=== PATIENT | male | born 1935 | race Caucasian/White ===

== ENCOUNTER 2016-05-17 13:39 | Emergency (ER) | payer OTHER ==
--- NOTE | 2016-05-17 14:42 | EKG Report ---
Test Performed on : 05/17/2016 1:44:35 PM Test Reason : FALL Blood Pressure : / mmHG Vent. Rate : 077 BPM Atrial Rate : 077 BPM P-R Int : 152 ms QRS Dur : 092 ms QT Int : 370 ms P-R-T Axes : 072 055 035 degrees QTc Int : 418 ms Normal sinus rhythm. Nonspecific ST and T wave abnormality Abnormal ECG When compared with ECG of 26-OCT-2015 10:27, No significant change was found Unconfirmed Result
--- NOTE | 2016-05-17 14:50 | PROVIDER DOCUMENTATION ---
HPI-Rash/Wound/ReCheck - General Chief Complaint: Fall Stated Complaint: FALL Time Seen by Provider: 05/17/16 14:45 Allergies/Adverse Reactions: Allergies Allergy/AdvReac Type Severity Reaction Status Date / Time No Known Allergies Allergy Verified 01/26/16 13:25 Home Medications: Buspirone [Buspar] 15 mg PO BID 10/01/13 Carvedilol [Coreg] 6.25 mg PO DAILY 10/01/13 LISINOpril [Prinivil] 10 mg PO DAILY 10/01/13 Venlafaxine [Effexor] 75 mg PO BID 10/01/13 - History of Present Illness-Dermatology Nature of Presenting Problem: pt was sent in by [facility] to tend to the skin tears on his arms and his scalp laceration whcih is currently not bleeding. 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 Location: reports: upper extremity, other (scalp) Context/Associated Symptoms: reports: denies symptoms Identifiable cause?: No Locality of Occurance: Home Similar Symptoms Previously?: Yes Recently seen or treated by another doctor?: No Review of Systems - Adult - REVIEW OF SYSTEMS - ADULT Constitutional: denies: chills, fever Eyes: denies: discharge, blurred vision Ears, Nose, Mouth & Throat: denies: ear pain, nose pain, hoarseness Cardiovascular: denies: chest pain, heart murmur, syncope Respiratory: denies: chronic cough, hemoptysis, shortness of breath Gastrointestinal: denies: abdominal pain, difficulty swallowing, nausea, rectal bleeding, vomiting Genitourinary: denies: discharge, frequent UTI's, urinary retention Musculoskeletal: denies: bone pain, frequent leg cramps, neck pain Integumentary: reports: skin sores/ulcer, other (2 cm right scalp laceration and both elbows have superficial skin tears) Neurological: denies: dizziness/vertigo, loss of balance, syncope Psychiatric: denies: no symptoms reported Endocrine: denies: goiter, cold intolerance, heat intolerance Hematologic/Lymphatic: denies: low blood count, lymphedema Allergic/Immunologic: denies: eczema, frequent infections, hives Past History - Adult - PAST MEDICAL HISTORY-ADULT Major Childhood Illnesses: reports: denies history Cardiovascular: reports: HTN Genitourinary: reports: prostate cancer, other (penile implant) Other Conditions: reports: denies history - PRIOR SURGERIES/PROCEDURES Surgical/Procedure History: reports: cardiac stent - IMMUNIZATION STATUS Childhood Immunizations: See Nurse Assessment Flu Vaccine: See Nurse Assessment - FAMILY HISTORY Family History: reviewed, not pertinent Physical Exam-General - PHYSICAL EXAM-ADULT Initial Vital Signs Reviewed: Yes - CONSTITUTIONAL General Appearance: appears well, alert, no apparent distress - EYES Eyes: PERRL/EOMI, pink conjunctivae - HEAD, EARS, NOSE, MOUTH & THROAT HENMT: normocephalic/atraumatic, moist mucous membranes, normal ENT inspection - NECK Neck: non-tender, full range of motion, supple - RESPIRATORY Respiratory: chest non-tender, lungs clear, normal breath sounds, no pleuratic chest pain, no respiratory distress, no accessory muscle use - CARDIOVASCULAR Cardiovascular: normal peripheral pulses, regular rate, rhythm, no edema, no gallop, no JVD, no murmur - GASTROINTESTINAL (ABDOMEN) Abdominal Exam: normal bowel sounds, non tender, soft, no organomegaly, no pulsatile mass - MUSCULOSKELETAL Back Exam: normal inspection, no CVA tenderness, no vertebral tenderness Extremity: normal range of motion, non-tender, normal inspection, no pedal edema - SKIN Integumentary: normal color, normal turgor, warm/dry, laceration(s), other ( bilateral elbow skin tears) - NEUROLOGIC Neurologic: oracle erp developer II-XII nml as tested, grossly normal, no motor/sensory deficits - PSYCHIATRIC Psych/Mental Status: normal mood/affect, normal thought content, normal thought process, oriented x 3 Progress - PLAN OF CARE/RESULTS Progress/Plan/Lab Results: Orders Category Date Time Status EKG [EKG] Stat Ther 05/17/16 13:42 Draft Vital Signs Temp Pulse Resp BP Pulse Ox 05/17/16 13:41 98.5 F 75 18 166/65 99 No Known Allergies Allergy (Verified 01/26/16 13:25) Buspirone [Buspar] 15 mg PO BID 10/01/13 Carvedilol [Coreg] 6.25 mg PO DAILY 10/01/13 LISINOpril [Prinivil] 10 mg PO DAILY 10/01/13 Venlafaxine [Effexor] 75 mg PO BID 10/01/13 Trazodone [Desyrel] 100 mg PO DAILY #0 tablet 10/28/15 Procedures - LACERATION/WOUND REPAIR/FB Right Head Wound's Depth, Shape: superficial Wound Explored/Foreign Body: clean Irrigated with Saline?: Yes Prepped with: Gianicleleslie Wound Repaired with: Layton-Small Number of Sutures: 2 Sterile Dressing Applied?: No Splint Applied?: No Sling Applied?: No Departure - Departure Time of Disposition Order: 15:06 DIAGNOSIS: Laceration, Abrasion Abrasion forearm Qualifiers: Encounter type: initial encounter Laterality: right Qualified Code(s): S50.811A - Abrasion of right forearm, initial encounter Disposition: HOME 01 Certified Medical Emergency: Emergent Condition: Good Additional Instructions: remove layton in 2 weeks ED Follow Up Instructions: You have been treated by a care provider in the Emergency Department. These instructions are being provided to you so you can have an understanding of how to care for yourself upon discharge. Upon discharge from the Emergency Department, you are responsible for making arrangements for follow-up care by a physician of your choice. Take all prescribed medications as directed. Return to the Emergency Department immediately for any new or worsening symptoms. You may call the Physician Referral phone number at [phone] to obtain a list of Physicians who are taking new patients. Prescriptions: Cephalexin [Keflex] 500 mg PO 4XDAY #40 capsule Referrals: Tobi Stewart MD [Primary Care Provider] -
[2016-05-17 15:44] VITALS: BP 179/70
== END 2016-05-17 15:48 | disposition home or self-care (01) ==
LOC: EDBD → ED 13:39
DX: S01.01XA Laceration without foreign body of scalp, initial encounter (principal); S50.811A Abrasion of right forearm, initial encounter; S51.012A Laceration without foreign body of left elbow, initial encounter; S51.011A Laceration without foreign body of right elbow, initial encounter; I10 Essential (primary) hypertension; Z79.899 Other long term (current) drug therapy; Z85.46 Personal history of malignant neoplasm of prostate; W19.XXXA Unspecified fall, initial encounter
CPT/HCPCS: 93005; 99282

== ENCOUNTER 2016-09-26 22:30 | Inpatient (IN) ==
[2016-09-26] MEDS ORDERED: XYLOCAINE 1%/EPI 1:100,000 INJ ONE (23:08)
[2016-09-26 23:51] LABS: ALBUMIN 3.3 g/dL (3.5-5.0); CALCIUM 8.5 mg/dL (8.8-10.2); MAGNESIUM 2.2 mg/dL (1.5-2.7); POTASSIUM 4.8 mmol/L (3.5-5.1); TOTAL BILIRUBIN 0.28 mg/dL (0.20-1.00); TOTAL PROTEIN 6.4 g/dL (6.3-8.3)
[2016-09-26 23:56] LABS: BASO% 0.3 % (0.0-0.8); EOS# 0.07 X1000 (0.0-0.7); EOS% 0.3 % (0.0-10.0); HEMATOCRIT 38.5 % (42.0-52.0); HEMOGLOBIN 13.1 g/dL (14.0-18.0); IMM GRAN# 0.22 X1000 (0.0-0.04); LYMPH# 1.56 X1000 (1.2-3.4); MANUAL DIFF NEEDED? NO; MCH 36.2 PG (27-31); MCV 106.4 FL (81-99); MONO# 0.82 X1000 (0.11-0.59); MONO% 3.7 % (1.7-9.3); MPV 9.9 FL (7.4-10.4); NEUT% 87.7 % (42.2-75.2); PLT 280 X1000 (130-400); RBC 3.62 XMIL (4.7-6.1)
[2016-09-27 00:37] LABS: URINE SOURCE CATH
[2016-09-27 00:53] LABS: BILIRUBIN URINE NEGATIVE (NEGATIVE); BLOOD URINE LARGE (NEGATIVE); COLOR ORANGE; GLUCOSE URINE NEGATIVE (NEGATIVE); LEUKOCYTES URINE LARGE (NEGATIVE); NITRITE URINE NEGATIVE (NEGATIVE); PH URINE 5.5; PROTEIN URINE 200 mg/dL (NEGATIVE); SP GRAVITY URINE 1.016; TURBIDITY URINE TURBID (CLEAR); UR EPITHELIAL CELLS >10 /HPF (<10); URINE BACTERIA 4+ /HPF; URINE MICRO REVIEW NEEDED? YES; URINE RBC TNTC /HPF (<10); URINE WBC TNTC /HPF (<10); UROBILINOGEN URINE NORMAL (NORMAL)
[2016-09-27] MEDS ORDERED: ROCEPHIN 1 GM/NS 1 GM/50 ML IVPB IV ONE (00:54)
[2016-09-27 00:57] LABS: URINE CASTS NONE SEEN; URINE CRYSTALS NONE SEEN; URINE CULTURE NEEDED? YES; URINE SMALL ROUND CELLS NONE SEEN
[2016-09-27] MEDS ORDERED: NS 1,000 ML IV ONE (00:57)
[2016-09-27 01:50] LABS: INR 0.92; PROTIME 9.6 Seconds (9.2-11.7)
[2016-09-27] MEDS ORDERED: THIAMINE IM ONE (02:16)
[2016-09-27] MEDS ORDERED: ROCEPHIN 1 GM/NS 1 GM/50 ML IVPB IV SCH (02:32)
[2016-09-27] MEDS ORDERED: TYLENOL PO PRN (02:32)
[2016-09-27] MEDS ORDERED: ZOFRAN IV PRN (02:32)
[2016-09-27] MEDS ORDERED: NS 1,000 ML IV SCH (02:32)
--- NOTE | 2016-09-27 02:32 | PROVIDER DOCUMENTATION ---
This chart was entered by Alfreda Rodriguez Scribe, acting as scribe for Richie Skinner MD. HPI-Musculoskeletal Pain/Inj - GENERAL Stated Complaint: fall/ head wound/etoh Time Seen by Provider: 09/26/16 22:30 Source: patient - HX OF PRESENT ILLNESS-MUSKULOSKELTAL Nature of Presenting Problem: 81 year old M presents to the ED with a cc of a fall and head injury. PT states that he tripped over his dog. PT has a large laceration to right scalp. PT states that he drank 1/2 of a 1/5 today. PT also has a large skin tear to right forearm. Severity in ED: moderate Onset/Duration: this evening Timing: still present Any recent injury?: Yes Locality of Occurance: Home Similar Symptoms Previously?: Yes - FALL INJURY Location of Pain/Injury: reports: head, upper extremity Reason for Fall: reports: tripped Loss of Consciousness: unsure Injury Associated Symptoms: reports: other (scalp laceration, skin tear) Review of Systems - Adult - REVIEW OF SYSTEMS - ADULT Constitutional: reports: no symptoms reported Eyes: reports: no symptoms reported Ears, Nose, Mouth & Throat: reports: no symptoms reported Cardiovascular: denies: chest pain, palpitations Respiratory: denies: cough, shortness of breath Gastrointestinal: reports: no symptoms reported Genitourinary: reports: no symptoms reported Musculoskeletal: reports: no symptoms reported Integumentary: reports: other (scalp laceration, skin tear). denies: skin sores /ulcer, skin thickening Neurological: reports: no symptoms reported Psychiatric: reports: no symptoms reported Endocrine: reports: no symptoms reported Hematologic/Lymphatic: reports: no symptoms reported Allergic/Immunologic: reports: no symptoms reported All Other Systems: Reviewed and Negative Past History - Adult - PAST MEDICAL HISTORY-ADULT Review of Records: reports: Nursing Assessment Review, Medications Reviewed Major Childhood Illnesses: reports: denies history Cardiovascular: reports: HTN Genitourinary: reports: prostate cancer, other (penile implant) Other Conditions: reports: denies history - PRIOR SURGERIES/PROCEDURES Surgical/Procedure History: reports: cardiac stent - IMMUNIZATION STATUS Childhood Immunizations: See Nurse Assessment Flu Vaccine: See Nurse Assessment - FAMILY HISTORY Family History: reviewed, not pertinent - SOCIAL HISTORY Smoking: cigarettes Provider spent 3-5 mins advising pt. on dangers of tobacco.: Discussed manners to quit use, and f/u contacts for add'l counseling. Alcohol Use Frequency: every day Number of drinks per typical drinking period:: 5-10 drinks Physical Exam-Injury Related - Physical Exam-Injury Related Initial Vital Signs Reviewed: Yes General Appearance: appears well, alert, no apparent distress Head, Ears, Nose, Mouth & Throat: other (4 cm "V" shaped laceration to scalp just right of the midline) Respiratory: no respiratory distress Cardiovascular: regular rate, rhythm Extremity: normal range of motion, normal inspection Integumentary: laceration (4 cm skin tear to right forearm) Progress - PLAN OF CARE/RESULTS Progress/Plan/Lab Results: Vital Signs - 8 hr 09/26/16 23:03 Temperature 97.7 F Pulse Rate 100 H Respiratory Rate 20 Blood Pressure 114/62 O2 Sat by Pulse Oximetry 96 Laboratory Results - last 24 hr 09/26/16 09/26/16 09/26/16 23:20 23:20 23:20 WBC 22.44 H RBC 3.62 L Hgb 13.1 L Hct 38.5 L MCV 106.4 H MCH 36.2 H MCHC 34.0 RDW Std Deviation 13.7 Plt Count 280 MPV 9.9 Immature Gran % (Auto) 1.0 H Neut % (Auto) 87.7 H Lymph % (Auto) 7.0 L Grand % (Auto) 3.7 Eos % (Auto) 0.3 Baso % (Auto) 0.3 Immature Gran # (Auto) 0.22 H Neut # (Auto) 19.70 H Lymph # (Auto) 1.56 Grand # (Auto) 0.82 H Eos # (Auto) 0.07 Baso # (Auto) 0.07 PT INR Sodium 138 Potassium 4.8 Chloride 97 L Carbon Dioxide 22 L Anion Gap 19 BUN 17 Creatinine 1.5 H Estimated GFR/1.73 m2 45 BUN/Creatinine Ratio 11 Glucose 130 H Calculated Osmolality 279 Calcium 8.5 L Magnesium 2.2 Total Bilirubin 0.28 AST 32 ALT 17 Alkaline Phosphatase 111 Total Protein 6.4 Albumin 3.3 L Globulin 3.1 Albumin/Globulin Ratio 1.1 Lipase 25 Urine Source Urine Color Urine Turbidity Urine pH Ur Specific [place] Urine Protein Ur Glucose (Stick) Ur Ketones (Stick) Urine Blood Urine Nitrite Urine Bilirubin Urobilinogen Dipstick Urine Leukocytes Urine WBC (Auto) Urine RBC (Auto) U Epithel Cells (Auto) Urine Bacteria (Auto) Urine Crystals Small Round Cells Urine Casts Urine Yeast-like Cells Plasma/Serum Ethyl Alc 138 H 09/27/16 09/27/16 00:12 01:08 WBC RBC Hgb Hct MCV MCH MCHC RDW Std Deviation Plt Count MPV Immature Gran % (Auto) Neut % (Auto) Lymph % (Auto) Grand % (Auto) Eos % (Auto) Baso % (Auto) Immature Gran # (Auto) Neut # (Auto) Lymph # (Auto) Grand # (Auto) Eos # (Auto) Baso # (Auto) PT 9.6 INR 0.92 Sodium Potassium Chloride Carbon Dioxide Anion Gap BUN Creatinine Estimated GFR/1.73 m2 BUN/Creatinine Ratio Glucose Calculated Osmolality Calcium Magnesium Total Bilirubin AST ALT Alkaline Phosphatase Total Protein Albumin Globulin Albumin/Globulin Ratio Lipase Urine Source CATH Urine Color ORANGE Urine Turbidity TURBID Urine pH 5.5 Ur Specific [place] 1.016 Urine Protein 200 A Ur Glucose (Stick) NEGATIVE Ur Ketones (Stick) NEGATIVE Urine Blood LARGE A Urine Nitrite NEGATIVE Urine Bilirubin NEGATIVE Urobilinogen Dipstick NORMAL Urine Leukocytes LARGE A Urine WBC (Auto) TNTC A Urine RBC (Auto) TNTC A U Epithel Cells (Auto) >10 A Urine Bacteria (Auto) 4+ Urine Crystals NONE SEEN Small Round Cells NONE SEEN Urine Casts NONE SEEN Urine Yeast-like Cells NONE SEEN Plasma/Serum Ethyl Alc Orders Category Date Time Status Bladder Scan and Record Result ORDERED Care 09/27/16 01:41 Active HEAD/C-SPINE W/O CONTRAST [CT] Stat Exams 09/26/16 22:31 Taken ALCOHOL BLOOD Stat Lab 09/26/16 23:20 Completed CBC WITH ELECTRONIC DIFF [HEME] Stat Lab 09/26/16 23:20 Completed CMP [COMPREHENSIVE METABOLIC PANEL] [CHEM] Stat Lab 09/26/16 23:20 Completed LIPASE [CHEM] Stat Lab 09/26/16 23:20 Completed MAGNESIUM [CHEM] Stat Lab 09/26/16 23:20 Completed PHOSPHORUS [CHEM] Stat Lab 09/27/16 01:41 Ordered PROTIME WITH INR [COAG] Stat Lab 09/27/16 01:08 Completed UA NIMS W/REFLEX CULT [URINALYSIS] Stat Lab 09/27/16 00:12 Completed URINE CULTURE [RM] Routine Lab 09/27/16 00:57 Received URINE MANUAL MICROSCOPIC [URINALYSIS] Stat Lab 09/27/16 00:12 Completed 0.9% Sodium Chloride Inj [Ns] 1,000 ml Med 09/27/16 00:57 Discontinued IV 999 mls/hr CefTRIAXONE 1 GM/NS [Rocephin 1 gm/Ns] Med 09/27/16 00:54 Discontinued 1 gm in 50 ml IV NOW Lidocaine 1%/Epi 1:100,000 [Xylocaine 1%/Epi 1:100,000] Med 09/26/16 23:08 Discontinued 20 ml INJ NOW ONE Multivit,Fe,Ca,FA & Min [Thera M Plus] Med 09/27/16 03:00 Active 1 each PO BID Thiamine Med 09/27/16 02:16 Discontinued 100 mg IM NOW ONE EKG [EKG] Stat Ther 09/27/16 01:41 Ordered Transfer/Admit Order [TRANSFER] Routine Transfer 09/27/16 01:44 Ordered Result Diagrams: 09/26/16 23:20 09/26/16 23:20 - EKG 1 Time of EKG reading by physician:: 02:24 EKG Read and Signed by:: Richie Skinner EKG Interpretation (*Must complete 3 of following elements*): Abnormal Rate: 99 Rhythm: NSR ST Wave: non-specific ST changes - CT/MRI 1 CT Study: Cervical Spine, Head Impression: Normal CT Results: scalp laceration, no other injury to head or c-spine:Dr. Fragoso(rad) - CONSULTS/PCP/HOSPITALIST Notification #1 *Consult/PCP/Hospitalist*: Dr. Martinez(hospitalist) Time Discussed: 01:04 Consult Disposition: Admit Procedures - LACERATION/WOUND REPAIR/FB Right Head Wound Location: Other: scalp Wound Length: 4 cm Wound's Depth, Shape: flap Anesthetic: 1%, Lidocaine w/ Epinephrine Volume of Anesthetic (ml's): 5 Wound Repaired with: Rulo-Small Number of Sutures: 10 Layer Closure?: No Splint Applied?: No Sling Applied?: No Departure - Departure Time of Disposition Decision: 00:56 DIAGNOSIS: Scalp laceration, Alcohol abuse, Recurrent falls, UTI (urinary tract infection) Disposition: ADMITTED INPATIENT 09 Certified Medical Emergency: Emergent Condition: Fair Referrals and Follow-Ups: Tobi Stewart MD [Primary Care Provider] - - Critical Care Note This patient required my direct & personal management of CC.: No This chart was documented by the indicated scribe, (Alfreda Rodriguez Scribe) and accurately reflects the services I performed and decisions made by me, Richie Skinner MD, as attested by the provider's signature.
[2016-09-27] MEDS: THERA M PLUS PO SCH ×2 (03:00→20:22)
[2016-09-27] MEDS: PROTONIX IV SCH (03:16)
[2016-09-27] MEDS: LIBRIUM PO SCH ×4 (03:50→20:22)
[2016-09-27 04:05] LABS: HEMOGLOBIN A1C 5.4 % (4.8-6.0)
[2016-09-27 04:07] LABS: UR AMPHETAMINES QUAL NONE DETECTED (NONE DETECT); UR BARBITUATES QUAL NONE DETECTED (NONE DETECT); UR BENZODIAZEPIN QUAL NONE DETECTED (NONE DETECT); UR CANNABINOIDS QUAL NONE DETECTED (NONE DETECT); UR COCAINE QUAL NONE DETECTED (NONE DETECT); UR METHADONE QUAL NONE DETECTED (NONE DETECT); UR OPIATES QUAL NONE DETECTED (NONE DETECT); UR OXYCODONE QUAL NONE DETECTED (NONE DETECT); UR PCP QUAL NONE DETECTED (NONE DETECT)
--- NOTE | 2016-09-27 04:19 | HISTORY AND PHYSICAL ---
PRIMARY CARE PROVIDER: Dr. Stewart. CHIEF COMPLAINT: Fall. HISTORY OF PRESENT ILLNESS: Mr. Morrow is a 81-year-old male with a past medical history of hypertension, COPD, prostate cancer, skin cancer, depression, anxiety , and alcohol abuse. He reports that recently he has had multiple falls. He reports that upon standing that he becomes very shaky and falls sometimes. He states that at this time he is drinking half a fifth of whiskey a day, and has so since 2013. Prior to this , he states that he drank a 6-pack a day for several years. He reports that tonight he tripped over his dog and fell, hitting his head. ER staff reports that his head wound did have a lot of bleeding prior to patient's sweta being placed. He denied any loss of consciousness. He denies any other pain at this time, though does have a large skin tear noted to his right forearm. The patient does report that starting yesterday, he began having dysuria. He also reports that he has had some difficulty urinating. He states he has a hard time initiating urine flow, though once his urine flow has started he denies any further problems with emptying his bladder. He denies any fever, body aches, or chills. He also denies any chest pain, abdominal pain, nausea, vomiting, or diarrhea. He does report that he has some occasional shortness of breath, and states this is not of new onset, and reports that he does have COPD. Upon evaluation in the ER, the patient was found to have a 4 cm V-shaped laceration to his scalp just right of the midline. Dr. Skinner did place approximately 10 sweta. He also has a 4 cm skin tear noted to his right forearm that has been bandaged by the ER staff as well. His last Tdap injection was on 01/26/2016. CT of the head and C-spine showed a scalp laceration, though no other injury of the head or C-spine noted. Also, the patient was noted to have leukocytosis, with a white blood cell count of 22,000 in the ER. Secondary to this, urinalysis was obtained, which does show the patient has a urinary tract infection as well. At this time, we will admit the patient for further treatment and evaluation of his urinary tract infection, alcohol intoxication, and multiple falls. REVIEW OF SYSTEMS: A 12-point review of systems was conducted with the patient. All were negative, except for pertinent positives mentioned in the above HPI. PAST MEDICAL HISTORY: 1. Hypertension. 2. COPD. 3. Prostate cancer. 4. Skin cancer. 5. Depression. 6. Anxiety. 7. Alcohol abuse. PAST SURGICAL HISTORY: 1. Appendectomy. 2. Prostate surgery for prostate cancer. 3. Penile implant surgery. SOCIAL HISTORY: Patient reports that he smokes a half a pack of cigarettes per day, and has so for approximately 40 years. He also is presently drinking a half a fifth of whiskey a day, and has so since 2013. Prior to this, he drank approximately 6 beers a day. He is . His in 2013, and that is when he states he started drinking whiskey. He did report that he does have home health that comes out to his house to see him. FAMILY HISTORY: He states that his mother had a history of congestive heart failure. His dad had a history of kidney disease. He has 1 brother that lives in [place], and is otherwise healthy. ALLERGIES: Patient reports no known allergies. HOME MEDICATIONS: 1. BuSpar 15 mg p.o. b.i.d. 2. Coreg 6.25 mg p.o. q.a.m. 3. Lisinopril 10 mg p.o. q.a.m. 4. Aleve 220 mg p.o. q.8 hours p.r.n. for pain. 5. Trazodone 100 mg p.o. at bedtime. 6. Effexor 75 mg p.o. q.a.m. DIAGNOSTIC DATA AND LABORATORY RESULTS: White blood cell count 22.4, hemoglobin 13.1, hematocrit 38.5, platelet count is 280,000. PT 9.6, INR was 0.92. Sodium 138, potassium 4.8, chloride 97, bicarb 22, BUN 17, creatinine 1.5, with an estimated GFR 45. Glucose is 130, calcium 8.5, magnesium 2.2. Liver function tests within normal limits. The lipase is 25. Serum alcohol was 138. Urinalysis was obtained via cath, was positive for protein and large blood , large leukocytes, too numerous to count white blood cells, greater than 10 epithelial cells, and 4+ bacteria. It was negative for glucose, ketones, or nitrites. CT of the head/ C-Spine showed a scalp laceration, though no other injuries noted. Pending diagnostic studies at this time are a urine culture, phosphorous, and EKG. PHYSICAL EXAMINATION: VITAL SIGNS: Temperature 97.7 degrees, heart rate 100, respirations 20, blood pressure 114/62, oxygen saturation is 96% on room air. GENERAL: Mr. Morrow is a pleasant 81-year-old male, who is resting in the ER stretcher. He is in no acute distress. He was awake, alert, and able to answer all questions appropriately. HEENT: The patient does have an approximately 4 cm V-shaped laceration noted to his scalp, just right of the midline. There are sweta in place at this time. There is no active bleeding noted. Pupils are equal, round, and reactive to light. Subconjunctivae were slightly pale. Oral mucosa is moist. Oropharynx is clear. NECK: Supple. Trachea midline. No carotid bruits noted upon auscultation bilaterally. CARDIOVASCULAR: Patient has normal S1, S2. No murmurs, gallops, or rubs appreciated, with a regular rate and rhythm. PULMONARY: Patient has symmetrical chest expansion bilaterally. Lung sounds are clear to auscultation in bilateral full batista. ABDOMEN: Soft, nontender, nondistended. Bowel sounds are present in all 4 quadrants. EXTREMITIES: No cyanosis, clubbing, or edema noted. Pulse, motor, and sensory were intact in all extremities as well. Pedal pulses were 3+ bilaterally. INTEGUMENTARY: Patient's skin is pink, warm, dry. As previously mentioned, the patient does have a 4 cm skin tear noted to his right forearm. This has been previously bandaged by ER staff. The patient does have some ecchymoses in various stages of healing on bilateral arms. NEUROLOGICAL: Patient is alert, oriented to person, place, time, and situation. Cranial nerves 2- 12 are grossly intact. ASSESSMENT AND PLAN: 1. Urinary tract infection. For this, we have placed the patient on Rocephin 1 g IV q.24 hours. We are awaiting a urine culture. The patient did report that he has had some trouble urinating. After urinating in the ER, we did bladder scan the patient, and was found to have 92 mL of urine still present. We will continue to monitor this closely. 2. Leukocytosis. This is likely secondary to his urinary tract infection. We will continue with treatment as above in #1 and continue to follow. 3. Acute kidney injury. We will continue with gentle fluid resuscitation with normal saline at 100 mL/h. We will avoid nephrotoxic medications. We will renally dose medications as necessary. Continue to monitor closely. 4. Hypertension. Will continue the patient's Coreg, though at this time, given his acute kidney injury, we have held his lisinopril. 5. Alcohol intoxication and abuse. We have placed orders for neurological checks q.2 hours, as well as seizure precautions, aspiration precautions, and fall precautions. We will start the patient on 25 mg of Librium q.6 hours and Ativan 1 mg IV push q.2 hours p.r.n. for alcohol withdrawal. We have ordered a multivitamin daily and thiamine 100mg IM. We will closely monitor his condition and continue to encourage him to quite drinking. 6. Multiple falls. This is likely influenced by the patient's alcohol abuse. At this time, he does live alone. We have placed a Correspondence Specialist consult and a Physical Therapy evaluation. We will continue to follow. 7. Depression. We will continue the patient's Effexor. The patient will be placed on CIC with telemetry. He will have vital signs q.4 hours. He will be on a heart healthy diet. We will do strict intake and output. DVT prophylaxis will be provided with SCDs. GI prophylaxis with Protonix 40 mg IV q.24 hours. Further orders and recommendations pending hospital course, diagnostic studies, and physician evaluation. Dictated by AMINA Thurman for Ramon Martinez MD Seen and examined patient with [employer] cc: MD Tobi Pascual MD MTDD
[2016-09-27] MEDS ORDERED: PNEUMOVAX 23 IM ONE (05:06)
--- NOTE | 2016-09-27 05:09 | EKG Report ---
Test Performed on : 09/27/2016 02:24:27 AM Test Reason : Fall, ETOH Intoxication. Blood Pressure : / mmHG Vent. Rate : 099 BPM Atrial Rate : 099 BPM P-R Int : 138 ms QRS Dur : 080 ms QT Int : 354 ms P-R-T Axes : 078 048 032 degrees QTc Int : 454 ms Normal sinus rhythm. Nonspecific ST abnormality Abnormal ECG When compared with ECG of 17-MAY-2016 13:44, T wave inversion no longer evident in Anterior leads Unconfirmed Result
[2016-09-27] MEDS ORDERED: NORCO-5 PO PRN (07:17)
--- NOTE | 2016-09-27 07:28 | Diag Imaging Result Doc PS360 ---
EXAM: HEAD/C-SPINE W/O CONTRAST HISTORY: head injury/pain TECHNIQUE: CT of the head without contrast; CT of the cervical spine. COMMENT: There is mild generalized cerebral atrophy. There is no evidence of mass effect bleed or abnormal extra-axial fluid collection. There is some mild periventricular white matter lucency particularly near the anterior horn on the right which has not changed since 06/21/2016. Otherwise has been no significant change. CT of the cervical spine: There are degenerative changes in the anterior atlantoaxial joints as well as degenerative disc changes with disc space narrowing and posterior osteophyte formation at C3-4, C4-5, and C5-C6. There is COPD with apical pleural scarring particularly in the right apex. There is no evidence of acute fracture or subluxation. IMPRESSION: No evidence of acute intracranial disease. No evidence of acute bony disease in the cervical spine. Electronically signed by Gutierrez Espinal 09/27/2016 7:26 AM
[2016-09-27] MEDS: COREG PO SCH (08:11)
[2016-09-27] MEDS: EFFEXOR PO SCH (09:41)
[2016-09-27] MEDS: M.V.I.-12 10 ML, FOLIC ACID 1 MG, MAGNESIUM SULFATE 1 GM, THIAMINE 100 MG in NS 1,000 ML IV SCH (09:41)
[2016-09-27] MEDS: DUONEB (A & A) INH SCH ×3 (11:03→19:40)
[2016-09-27] MEDS: ATIVAN IV PRN (23:03)
[2016-09-28] MEDS ORDERED: LIBRIUM PO SCH
[2016-09-28] MEDS: SODIUM CHLORIDE 0.9% INJ SCH (01:36)
[2016-09-28] MEDS: ROCEPHIN 1 GM/NS 1 GM/50 ML IVPB IV SCH (01:36)
[2016-09-28] MEDS: PROTONIX IV SCH (01:48)
[2016-09-28 05:42] LABS: BASO% 0.5 % (0.0-0.8); EOS# 0.21 X1000 (0.0-0.7); EOS% 1.9 % (0.0-10.0); HEMATOCRIT 26.9 % (42.0-52.0); HEMOGLOBIN 9.2 g/dL (14.0-18.0); IMM GRAN# 0.05 X1000 (0.0-0.04); IMM GRAN% 0.5 % (0.0-0.5); LYMPH# 1.97 X1000 (1.2-3.4); LYMPH% 17.9 % (20.5-51.1); MANUAL DIFF NEEDED? NO; MCH 36.8 PG (27-31); MCHC 34.2 g/dL (33-37); MCV 107.6 FL (81-99); MONO# 0.95 X1000 (0.11-0.59); MONO% 8.6 % (1.7-9.3); MPV 10.9 FL (7.4-10.4); NEUT% 70.6 % (42.2-75.2); PLT 208 X1000 (130-400)
[2016-09-28 06:07] LABS: ALBUMIN 2.7 g/dL (3.5-5.0); CALCIUM 7.9 mg/dL (8.8-10.2); POTASSIUM 3.9 mmol/L (3.5-5.1); TOTAL BILIRUBIN 0.34 mg/dL (0.20-1.00); TOTAL PROTEIN 5.4 g/dL (6.3-8.3)
[2016-09-28] MEDS: DUONEB (A & A) INH SCH ×5 (06:47→22:24)
--- NOTE | 2016-09-28 07:13 | PROGRESS NOTE ---
DATE: 09/28/2016 SUBJECTIVE: Mr. Morrow is a 81-year-old, white gentleman, admitted yesterday status post fall. The patient was found to have significant UTI. The patient does have history of alcohol abuse along with his other medical problems. The patient claims he tripped over his dog, hit his head, lacerated wound on the scalp which was stapled. Patient also had a skin tear on his right forearm. No documented history of loss of consciousness. Admission history and physical noted. The patient is complaining of headache. No seizure-type activity. The patient does have cough with scanty sputum production. He denied any nausea or vomiting. No typical chest pain. Does have mild dysuria. No diarrhea, blood or mucus in the stool. The patient is very vague and poor historian. The patient is very noncompliant for treatment. He does have significant history of alcohol abuse. I requested him multiple times about alcohol rehab, offered him help but patient refused. Family was aware. PAST MEDICAL HISTORY: COPD, coronary artery disease, prostate cancer, hyperlipidemia, gastritis. OBJECTIVE: Vital Signs His vital signs noted. Neck: Supple. No JVD. Lungs: Bilateral good air entry present. Few basal crepitations. Heart: S1 and S2 heard. Abdomen: Soft, globular. Bowel sounds present. Patient does have a stitch wound on the scalp, dressed wound on the right forearm. Extremities: No cyanosis, clubbing. No acute DVT. CORRECTIONAL SUPERVISOR: Alert, awake. Able to move all 4 limbs. CONSIDERATION: 1. Urinary tract infection. The patient is on IV Rocephin. 2. Head injury. 3. Chronic obstructive pulmonary disease. 4. Hypertension. 5. Prostate cancer. 6. Gastritis and reflux disease. PLAN: We are going to continue IV antibiotics. Gentle hydration, close observation. Deep venous thrombosis prophylaxis. I did discuss patient's condition, prognosis, risk of DT with his daughter, Gianna, yesterday on the telephone of poor prognosis. They did understand. Will watch patient for sedation. Fall precaution. LAB DATA: Done this morning, hemoglobin 9.2, WBC count 11, hematocrit 26.9, platelet count 208,000. CBC improved. Electrolytes fairly benign. Creatinine 1.3. His hemoglobin A1c was 5.4. Urine culture result is pending. cc: Tobi Stewart MD
[2016-09-28] MEDS: M.V.I.-12 10 ML, FOLIC ACID 1 MG, MAGNESIUM SULFATE 1 GM, THIAMINE 100 MG in NS 1,000 ML IV SCH (09:41)
[2016-09-28] MEDS: LIBRIUM PO SCH ×3 (09:41→21:17)
[2016-09-28] MEDS: COREG PO SCH (09:41)
[2016-09-28] MEDS: THERA M PLUS PO SCH ×2 (09:41→21:17)
[2016-09-28] MEDS: EFFEXOR PO SCH (09:41)
[2016-09-28] MEDS: ATIVAN IV PRN (15:51)
[2016-09-29] MEDS: ROCEPHIN 1 GM/NS 1 GM/50 ML IVPB IV SCH (01:44)
[2016-09-29] MEDS: SODIUM CHLORIDE 0.9% INJ SCH (01:45)
[2016-09-29] MEDS: PROTONIX IV SCH (01:45)
[2016-09-29] MEDS: LIBRIUM PO SCH ×4 (04:09→20:16)
[2016-09-29] MEDS: DUONEB (A & A) INH SCH ×5 (04:20→21:54)
--- NOTE | 2016-09-29 07:59 | PROGRESS NOTE ---
DATE: 09/29/2016 SUBJECTIVELY: Mr. Morrow is feeling better. According to nurses, the patient is tolerating Librium well. He was some tremulous last night. The patient is eating fair. No nausea, vomiting. No hallucination. No typical chest pain or palpitations. No high-grade fever or chills. No tachycardia. Patient admitted with UTI. History of fall, head injury. OBJECTIVE: Vital Signs: Vital signs noted. Neck: Supple. No JVD. Lungs: Bibasilar crepitations. Heart: S1 and S2 heard. Abdomen: Soft, globular. Bowel sounds present. Extremities: No cyanosis, clubbing. No acute DVT. MANUFACTURING ADVISOR: Patient is sleeping, but arousable. Able to move all 4 limbs. LAB DATA: Done yesterday, reviewed. CONSIDERATION/ASSESSMENT: 1. Urinary tract infection. Culture result reviewed. Patient had Pseudomonas sensitive to Rocephin. Will continue. 2. Alcohol abuse and withdrawal. Will continue Librium. I am going to change Librium to 50 mg t.i.d. from tomorrow. 3. Patient is on gastrointestinal and deep vein thrombosis prophylaxis. 4. Chronic obstructive pulmonary disease. 5. Head injury. 6. History of prostate cancer. I am going to repeat blood work tomorrow. cc: Tobi Stewart MD
[2016-09-29] MEDS: M.V.I.-12 10 ML, FOLIC ACID 1 MG, MAGNESIUM SULFATE 1 GM, THIAMINE 100 MG in NS 1,000 ML IV SCH (08:32)
[2016-09-29] MEDS: EFFEXOR PO SCH (08:32)
[2016-09-29] MEDS: THERA M PLUS PO SCH ×2 (08:32→20:16)
[2016-09-29] MEDS: COREG PO SCH (08:32)
[2016-09-29] MEDS: ATIVAN IV PRN (11:40)
[2016-09-30] MEDS: SODIUM CHLORIDE 0.9% INJ SCH (00:03)
[2016-09-30] MEDS: ROCEPHIN 1 GM/NS 1 GM/50 ML IVPB IV SCH (00:03)
[2016-09-30] MEDS: ATIVAN IV PRN ×2 (00:03→09:09)
[2016-09-30] MEDS: PROTONIX IV SCH (00:03)
[2016-09-30] MEDS: DUONEB (A & A) INH SCH ×4 (03:09→21:56)
[2016-09-30] MEDS: LIBRIUM PO SCH ×4 (03:09→20:24)
[2016-09-30 04:52] LABS: BASO% 0.5 % (0.0-0.8); EOS# 0.21 X1000 (0.0-0.7); HEMATOCRIT 26.2 % (42.0-52.0); HEMOGLOBIN 8.7 g/dL (14.0-18.0); IMM GRAN# 0.03 X1000 (0.0-0.04); IMM GRAN% 0.3 % (0.0-0.5); LYMPH# 1.43 X1000 (1.2-3.4); LYMPH% 13.7 % (20.5-51.1); MANUAL DIFF NEEDED? NO; MCH 36.3 PG (27-31); MCHC 33.2 g/dL (33-37); MCV 109.2 FL (81-99); MONO% 9.6 % (1.7-9.3); MPV 11.2 FL (7.4-10.4); NEUT% 73.9 % (42.2-75.2); PLT 221 X1000 (130-400)
[2016-09-30 05:05] LABS: AGAP 11; ALBUMIN 2.6 g/dL (3.5-5.0); ALKALINE PHOSPHATASE 73 U/L (32-122); BUN 16 mg/dL (8-22); CALCIUM 8.6 mg/dL (8.8-10.2); CHLORIDE 103 mmol/L (98-107); COSMO 281; GOT 22 U/L (10-34); GPT 12 U/L (10-44); POTASSIUM 3.9 mmol/L (3.5-5.1); SODIUM 140 mmol/L (136-145); TCO2 26 mmol/L (25-35); TOTAL BILIRUBIN 0.15 mg/dL (0.20-1.00); TOTAL PROTEIN 5.3 g/dL (6.3-8.3)
--- NOTE | 2016-09-30 08:10 | Diag Imaging Result Doc PS360 ---
EXAM: CHEST-PORTABLE HISTORY: cough TECHNIQUE: Portable upright AP COMPARISON: 01/26/2016 FINDINGS: The lungs are well expanded. The heart is not enlarged. The vessels are not distended. No pleural effusions identified. Increased markings in the left base may be fibrosis. No consolidation. There is a granuloma in the upper right lung. IMPRESSION: No significant interval change. Electronically signed by Ivan Fragoso 09/30/2016 8:08 AM
[2016-09-30] MEDS: COREG PO SCH (08:22)
[2016-09-30] MEDS: M.V.I.-12 10 ML, FOLIC ACID 1 MG, MAGNESIUM SULFATE 1 GM, THIAMINE 100 MG in NS 1,000 ML IV SCH (08:22)
[2016-09-30] MEDS: EFFEXOR PO SCH (08:22)
[2016-09-30] MEDS: THERA M PLUS PO SCH ×2 (08:22→20:24)
--- NOTE | 2016-09-30 11:30 | PROGRESS NOTE ---
DATE: 09/30/2016 SUBJECTIVE: Mr. Morrow is doing fair. The patient is on Librium. At times patient was getting agitated, trying to get out of bed. No high-grade fever or chills. Some confusion. No hallucination or seizure. He has a mild cough. No expectoration. Oral intake is fair. Patient admitted with UTI, alcohol withdrawal, head injury. OBJECTIVE: Vital signs: Noted. Neck: Supple. No JVD. HEENT: Wound on the scalp. No evidence of infection. Lungs: Bibasilar crepitation. Heart: S1 and S2 heard. Abdomen: Soft, globular. Bowel sounds present. Extremities: No cyanosis, clubbing. No acute DVT. PLANT WORKER: Patient is sleeping but arousable. Able to move all 4 limbs. LAB DATA: Done today, WBC count 10.43, hemoglobin 8.9, hematocrit 26.2, platelet count 221,000. Electrolytes fairly benign. LFT results also reviewed. ASSESSMENT: Patient's problems include: 1. Urinary tract infection secondary to Pseudomonas. 2. Alcohol withdrawal. 3. Hypertension. 4. Head injury. 5. Benign prostatic hypertrophy. PLAN: Continue current treatment. Close observation. Seizure precautions. IV antibiotics. I did chest x-ray which did not reveal any pneumonia. Encourage oral feeding. Overall plan discussed. We will watch patient closely. cc: Tobi Stewart MD
[2016-10-01] MEDS: ROCEPHIN 1 GM/NS 1 GM/50 ML IVPB IV SCH (03:27)
[2016-10-01] MEDS: LIBRIUM PO SCH ×4 (03:27→20:08)
[2016-10-01] MEDS: PROTONIX IV SCH (03:27)
[2016-10-01] MEDS: SODIUM CHLORIDE 0.9% INJ SCH (03:28)
[2016-10-01] MEDS: DUONEB (A & A) INH SCH ×4 (03:56→21:55)
--- NOTE | 2016-10-01 06:51 | PROGRESS NOTE ---
DATE: 10/01/2016 SUBJECTIVE: Mr. Morrow is doing fair. Oral intake is poor. No unusual agitation. The patient is more sedated. No nausea or vomiting. No high-grade fever or chills. The patient is on Librium. No unusual bleeding. OBJECTIVE: Vital Signs: Noted. Neck: Supple. No JVD. Lungs: Bilateral good air entry present. Few basal crepitations. Cardiovascular: S1 and S2 heard. Abdomen: Soft, globular. Bowel sounds present. Central Nervous System: Alert, awake, able to move all 4 limbs. LABORATORY DATA: The patient's lab data done yesterday reviewed. I am going to recheck blood work today. He patient is more sedated. I am going to decrease his Librium. CONSIDERATION: 1. Urinary tract infection. 2. Alcohol abuse and withdrawal. 3. Head injury. 4. Chronic obstructive pulmonary disease. 5. Hypertension. 6. Blood loss anemia. PLAN: I will recheck blood work today. Decrease his Librium. I started him on Nicoderm for nicotine withdrawal. Start him on Clinimix for nutritional support. Continue the rest of the treatment and close observation. cc: Tobi Stewart MD
[2016-10-01 07:03] LABS: BASO% 0.4 % (0.0-0.8); EOS# 0.14 X1000 (0.0-0.7); EOS% 1.1 % (0.0-10.0); HEMATOCRIT 26.8 % (42.0-52.0); HEMOGLOBIN 8.9 g/dL (14.0-18.0); LYMPH# 1.36 X1000 (1.2-3.4); LYMPH% 10.4 % (20.5-51.1); MANUAL DIFF NEEDED? NO; MCH 36.2 PG (27-31); MCHC 33.2 g/dL (33-37); MCV 108.9 FL (81-99); MONO# 0.92 X1000 (0.11-0.59); MPV 10.5 FL (7.4-10.4); NEUT% 81.1 % (42.2-75.2); PLT 238 X1000 (130-400); RBC 2.46 XMIL (4.7-6.1)
[2016-10-01 07:25] LABS: AGAP 12; ALBUMIN 2.7 g/dL (3.5-5.0); ALKALINE PHOSPHATASE 75 U/L (32-122); BUN 14 mg/dL (8-22); CHLORIDE 105 mmol/L (98-107); COSMO 280; GOT 23 U/L (10-34); GPT 14 U/L (10-44); POTASSIUM 3.8 mmol/L (3.5-5.1); SODIUM 140 mmol/L (136-145); TCO2 23 mmol/L (25-35); TOTAL BILIRUBIN 0.26 mg/dL (0.20-1.00)
[2016-10-01] MEDS: CLINIMIX E 4.25%-5% SOLUTION 1,000 ML IV SCH ×2 (07:34→18:42)
[2016-10-01] MEDS: THERA M PLUS PO SCH ×2 (08:10→20:08)
[2016-10-01] MEDS: COREG PO SCH (08:10)
[2016-10-01] MEDS: M.V.I.-12 10 ML, FOLIC ACID 1 MG, MAGNESIUM SULFATE 1 GM, THIAMINE 100 MG in NS 1,000 ML IV SCH (08:10)
[2016-10-01] MEDS: EFFEXOR PO SCH (08:10)
[2016-10-01] MEDS: NICODERM PATCH TD SCH (08:10)
[2016-10-02] MEDS: SODIUM CHLORIDE 0.9% INJ SCH (00:13)
[2016-10-02] MEDS: ROCEPHIN 1 GM/NS 1 GM/50 ML IVPB IV SCH (00:13)
[2016-10-02] MEDS: PROTONIX IV SCH (00:13)
[2016-10-02] MEDS: LIBRIUM PO SCH ×4 (02:38→21:00)
[2016-10-02] MEDS: DUONEB (A & A) INH SCH ×4 (04:57→22:01)
[2016-10-02] MEDS ORDERED: LASIX IV ONE (06:06)
--- NOTE | 2016-10-02 06:46 | PROGRESS NOTE ---
DATE: 10/02/2016 SUBJECTIVE: Mr. Morrow is doing better. He still has some cough, low-grade fever. The patient is not expectorating. No high-grade fever or chills. Oral intake was variable. I started patient on Clinimix for nutritional support. OBJECTIVE: His vital signs noted. At times, blood pressure is high. Neck: Supple. No JVD. Lungs: Bibasilar crepitations. Heart: S1 and S2 heard. Abdomen: Soft, globular. Bowel sounds present. Central Nervous System: Alert, awake. Able to move all 4 limbs. CONSIDERATION: Patient admitted with urinary tract infection, head injury, does have alcohol abuse and withdrawal. Other problems include cancer of prostate, chronic obstructive pulmonary disease. Chest x-ray showed atelectasis. Blood-loss anemia. I repeated blood work. Hemoglobin was 8.9, hematocrit 26.8. Electrolytes result reviewed. I am going to continue current treatment. Give a small dose of IV Lasix. I am going to get Physical Therapy evaluation. Out of bed to chair with assistance. Fall precaution. Overall plan discussed with the patient. He was more awake today. cc: Tobi Stewart MD
[2016-10-02] MEDS: CLINIMIX E 4.25%-5% SOLUTION 1,000 ML IV SCH ×2 (08:46→22:34)
[2016-10-02] MEDS: NICODERM PATCH TD SCH (09:34)
[2016-10-02] MEDS: THERA M PLUS PO SCH ×2 (09:34→21:34)
[2016-10-02] MEDS: EFFEXOR PO SCH (09:34)
[2016-10-02] MEDS: COREG PO SCH (09:34)
[2016-10-02] MEDS: M.V.I.-12 10 ML, FOLIC ACID 1 MG, MAGNESIUM SULFATE 1 GM, THIAMINE 100 MG in NS 1,000 ML IV SCH (10:00)
[2016-10-02] MEDS: ATIVAN IV PRN (20:30)
[2016-10-03] MEDS: PROTONIX IV SCH (00:36)
[2016-10-03] MEDS: ROCEPHIN 1 GM/NS 1 GM/50 ML IVPB IV SCH (00:38)
[2016-10-03] MEDS: ATIVAN IV PRN (02:45)
[2016-10-03] MEDS: LIBRIUM PO SCH ×4 (02:58→17:27)
[2016-10-03] MEDS: DUONEB (A & A) INH SCH ×4 (04:03→22:48)
[2016-10-03 05:19] LABS: BASO% 0.4 % (0.0-0.8); EOS# 0.21 X1000 (0.0-0.7); EOS% 1.9 % (0.0-10.0); HEMATOCRIT 27.6 % (42.0-52.0); HEMOGLOBIN 9.4 g/dL (14.0-18.0); IMM GRAN# 0.03 X1000 (0.0-0.04); IMM GRAN% 0.3 % (0.0-0.5); LYMPH# 1.33 X1000 (1.2-3.4); LYMPH% 12.2 % (20.5-51.1); MANUAL DIFF NEEDED? NO; MCH 37.2 PG (27-31); MCHC 34.1 g/dL (33-37); MCV 109.1 FL (81-99); MPV 10.8 FL (7.4-10.4); NEUT% 73.2 % (42.2-75.2); PLT 261 X1000 (130-400); RBC 2.53 XMIL (4.7-6.1)
[2016-10-03 05:58] LABS: AGAP 13; ALBUMIN 2.2 g/dL (3.5-5.0); ALKALINE PHOSPHATASE 68 U/L (32-122); BUN 23 mg/dL (8-22); CALCIUM 8.2 mg/dL (8.8-10.2); CHLORIDE 101 mmol/L (98-107); COSMO 278; GOT 26 U/L (10-34); GPT 13 U/L (10-44); MAGNESIUM 2.1 mg/dL (1.5-2.7); POTASSIUM 4.4 mmol/L (3.5-5.1); SODIUM 137 mmol/L (136-145); TCO2 23 mmol/L (25-35); TOTAL BILIRUBIN 0.22 mg/dL (0.20-1.00)
--- NOTE | 2016-10-03 06:46 | PROGRESS NOTE ---
DATE: 10/03/2016 SUBJECTIVE: Mr. Morrow is doing fair. I started him on IV Clinimix. Tolerating medication well. No high-grade fever or chills. No nausea or vomiting. The patient did have good bowel movement. No unusual cough or expectoration. OBJECTIVE: Vital Signs: Noted. Neck: Supple. No JVD. Lungs: Bibasilar crepitations. Cardiovascular: S1 and S2 heard. Abdomen: Soft, globular. Bowel sounds present. Extremities: No cyanosis, clubbing. No acute DVT. SAFETY INSTRUCTOR: Alert, awake. Able to move all 4 limbs, though patient was sedated so uncooperative for detailed exam. CONSIDERATION: 1. Urinary tract infection, clinically doing better. 2. Alcohol withdrawal. 3. Chronic obstructive pulmonary disease. 4. Hypertension. 5. Lacerated wound on the scalp. PLAN: Patient is still needing in-hospital care. I had a discussion with the family about short- term rehab. They are in agreement. I am going to do social service consult for the same. I am planning to discharge patient to rehab on Saturday if clinical condition permits. cc: Tobi Stewart MD
[2016-10-03] MEDS: COREG PO SCH (08:21)
[2016-10-03] MEDS: NICODERM PATCH TD SCH (08:21)
[2016-10-03] MEDS: THERA M PLUS PO SCH ×2 (08:21→20:53)
[2016-10-03] MEDS: M.V.I.-12 10 ML, FOLIC ACID 1 MG, MAGNESIUM SULFATE 1 GM, THIAMINE 100 MG in NS 1,000 ML IV SCH (08:21)
[2016-10-03] MEDS: EFFEXOR PO SCH (08:21)
[2016-10-03] MEDS: CLINIMIX E 4.25%-5% SOLUTION 1,000 ML IV SCH (11:31)
[2016-10-04] MEDS: ROCEPHIN 1 GM/NS 1 GM/50 ML IVPB IV SCH (00:51)
[2016-10-04] MEDS: CLINIMIX E 4.25%-5% SOLUTION 1,000 ML IV SCH ×2 (00:51→15:43)
[2016-10-04] MEDS: LIBRIUM PO SCH (00:51)
[2016-10-04] MEDS: PROTONIX IV SCH (00:51)
[2016-10-04] MEDS: DUONEB (A & A) INH SCH ×4 (03:49→22:49)
[2016-10-04] MEDS ORDERED: LIBRIUM PO PRN (06:14)
[2016-10-04] MEDS ORDERED: LASIX IV ONE (06:15)
--- NOTE | 2016-10-04 06:40 | PROGRESS NOTE ---
DATE: 10/04/2016 SUBJECTIVELY: Mr. Morrow is doing better. Librium, at times, is making him drowsy. I decreased that dose. I am going to change him to p.r.n. No high-grade fever or chills. Mild cough. No expectoration. No nausea or vomiting. OBJECTIVE: Vital Signs: Noted. Neck: Supple. No JVD. Lungs: Bilateral good air entry present. CVS: S1 and S2 heard. Abdomen: Soft, globular. Bowel sounds present. DRILL SHARPENER OPERATOR: Patient is sleeping, but arousable. Able to move all 4 limbs. ASSESSMENT AND PLAN: Blood work done yesterday noted. I am going to check a chest x-ray today. Give him small dose of IV Lasix. Continue rest of the treatment. Close observation. If clinical condition permits, I am planning to discharge him to rehab tomorrow. Plan discussed with his daughter PROBLEMS: Include: 1. Urinary tract infection 2. Chronic obstructive pulmonary disease. 3. Alcohol withdrawal. 4. Gastritis and reflux disease. 5. Prostate cancer. 6. Hyperlipidemia. cc: Tobi Stewart MD
--- NOTE | 2016-10-04 07:08 | Diag Imaging Result Doc PS360 ---
EXAM: CHEST-PORTABLE HISTORY: cough TECHNIQUE: AP portable upright at 0625 COMMENT: There is retrocardiac opacification of the left lower lobe which is worse than on 09/30/2016. Otherwise has been no significant change. IMPRESSION: Left lower lobe atelectasis versus pneumonia. Electronically signed by Gutierrez Espinal 10/04/2016 7:05 AM
[2016-10-04] MEDS: THERA M PLUS PO SCH (09:20)
[2016-10-04] MEDS: COREG PO SCH (09:20)
[2016-10-04] MEDS: NICODERM PATCH TD SCH (09:20)
[2016-10-04] MEDS: EFFEXOR PO SCH (09:21)
[2016-10-04] MEDS: M.V.I.-12 10 ML, FOLIC ACID 1 MG, MAGNESIUM SULFATE 1 GM, THIAMINE 100 MG in NS 1,000 ML IV SCH (09:21)
[2016-10-04] MEDS ORDERED: MISC. PHARMACY COMMUNICATION SCH (13:30)
--- NOTE | 2016-10-04 14:53 | Diag Imaging Result Doc PS360 ---
CHRISTINA SWALLOW W/VIDEO SPEECH THER - 10/04/2016 INDICATION: POSSIBLE ASPIRATION TECHNIQUE: Total fluoroscopy time is 19 seconds. 74 images were obtained. COMPARISON: None FINDINGS: The patient had very little drive to swallow. When fed with thin liquids by a syringe, the patient did swallow successfully without any aspiration or penetration. However a lot of liquid simply dribbled out of his mouth. The same thing occurred with pureed solid consistency. IMPRESSION: No aspiration or penetration. Very little drive to swallow with delayed initiation. Full dietary recommendations will be provided by the patient's speech pathologist. Electronically signed by Brady Queen 10/04/2016 2:51 PM
[2016-10-05] MEDS: PROTONIX IV SCH (01:29)
[2016-10-05] MEDS: ROCEPHIN 1 GM/NS 1 GM/50 ML IVPB IV SCH (01:30)
[2016-10-05] MEDS: DUONEB (A & A) INH SCH ×4 (03:49→19:16)
[2016-10-05] MEDS: CLINIMIX E 4.25%-5% SOLUTION 1,000 ML IV SCH ×2 (04:28→16:56)
[2016-10-05] MEDS ORDERED: ATIVAN IV PRN (07:07)
--- NOTE | 2016-10-05 07:38 | PROGRESS NOTE ---
DATE: 10/05/2016 SUBJECTIVE: Mr. Morrow is doing better. He is more alert and awake, though the patient does have confusion and some disorientation. Patient was talking about his who many years ago. No typical chest pain. No high-grade fever or chills. Denied any nausea or vomiting. I am going to evaluate him for swallowing today. His chest x-ray done yesterday did reveal atelectasis versus left lower lobe pneumonia. OBJECTIVE: The patient is afebrile. Neck supple. No JVD. Lungs: Bibasilar crepitations. Occasional wheezing. CVS: S1 and S2 heard. Abdomen soft, globular. Bowel sounds present. Extremities: No cyanosis, clubbing. No acute DVT. ELECTRICIAN TELEPHONE: Alert, awake, able to move all 4 limbs. CONSIDERATION: 1. Left lower lobe pneumonia versus atelectasis. The patient does have underlying chronic obstructive pulmonary disease. 2. Urinary tract infection seems to be doing better. 3. History of prostate cancer. The patient is on IV Rocephin. I am going to add Levaquin. I am going to add Mucomyst. Continue rest of the treatment. Close observation. We are waiting for senior living bed. cc: Tobi Stewart MD
[2016-10-05] MEDS: M.V.I.-12 10 ML, FOLIC ACID 1 MG, MAGNESIUM SULFATE 1 GM, THIAMINE 100 MG in NS 1,000 ML IV SCH (08:28)
[2016-10-05] MEDS: BUSPAR PO SCH ×2 (08:29→20:48)
[2016-10-05] MEDS: NICODERM PATCH TD SCH (08:29)
[2016-10-05] MEDS: EFFEXOR PO SCH (08:29)
[2016-10-05 09:19] LABS: BASO% 0.7 % (0.0-0.8); EOS# 0.31 X1000 (0.0-0.7); EOS% 3.6 % (0.0-10.0); HEMATOCRIT 29.1 % (42.0-52.0); HEMOGLOBIN 9.7 g/dL (14.0-18.0); IMM GRAN# 0.03 X1000 (0.0-0.04); IMM GRAN% 0.3 % (0.0-0.5); LYMPH# 1.71 X1000 (1.2-3.4); LYMPH% 19.6 % (20.5-51.1); MANUAL DIFF NEEDED? NO; MCH 36.3 PG (27-31); MCHC 33.3 g/dL (33-37); MONO# 1.12 X1000 (0.11-0.59); MONO% 12.8 % (1.7-9.3); MPV 10.6 FL (7.4-10.4); PLT 334 X1000 (130-400); RBC 2.67 XMIL (4.7-6.1)
[2016-10-05 09:36] LABS: AGAP 11; ALBUMIN 2.6 g/dL (3.5-5.0); ALKALINE PHOSPHATASE 67 U/L (32-122); BUN 21 mg/dL (8-22); CALCIUM 8.4 mg/dL (8.8-10.2); CHLORIDE 100 mmol/L (98-107); COSMO 276; GOT 21 U/L (10-34); GPT 10 U/L (10-44); SODIUM 136 mmol/L (136-145); TCO2 25 mmol/L (25-35); TOTAL BILIRUBIN 0.21 mg/dL (0.20-1.00); TOTAL PROTEIN 5.5 g/dL (6.3-8.3)
[2016-10-05] MEDS: MUCOMYST 20% INH SCH ×2 (10:55→19:16)
--- NOTE | 2016-10-05 14:07 | Diag Imaging Result Doc PS360 ---
EXAM: LUMBAR SPINE 2-VIEWS INDICATION: back pain TECHNIQUE: 2 views COMPARISON: None. FINDINGS: There are tiny endplate degenerative osteophytes at and below the L2-3 level. Intervertebral disc spaces and vertebral body heights appear to be relatively well maintained. There is no discrete fracture, subluxation, or significant intrinsic osseous lesion, otherwise. There is patchy retained barium contrast from a recent modified barium swallow in the colon. IMPRESSION: Mild multilevel endplate degenerative changes as described. Electronically signed by Dayton Quick 10/05/2016 2:05 PM
--- NOTE | 2016-10-05 19:54 | DISCHARGE SUMMARY ---
ADMISSION DATE: 09/27/2016 DISCHARGE DATE: 10/05/2016 FINAL DISCHARGE DIAGNOSES: 1. Urinary tract infection. 2. Alcohol withdrawal. 3. History of prostate cancer. 4. Hypertension. 5. Coronary artery disease. 6. Degenerative disc disease in the back. 7. Chronic obstructive pulmonary disease. 8. Gastritis and reflux disease. 9. Situational depression. 10. Anxiety. 11. Atelectasis. HISTORY OF PRESENT ILLNESS: Mr. Morrow is a 81-year-old, white gentleman admitted with fever and chills. The patient had a fall at home with a head injury. He was evaluated in the ER. The patient also had dysuria. For workup the patient had sweta placed on the scalp. Patient had significant bleeding at home. Evaluated in the ER and admitted for further care. The patient found to have UTI, acute blood loss anemia. HOSPITAL COURSE: Patient was admitted to [facility] and treated with IV hydration, appropriate vitamin supplement, IV antibiotics, bronchodilator treatment, close observation. We have to give him Librium [id number], parenteral nutrition. His clinical condition gradually improved. The patient underwent modified speech and barium swallow. Recommendation noted. The patient was complaining of back pain. I did x-ray of the lumbosacral spine which did reveal degenerative disc disease. His chest x-ray done on October 04 revealed left lower lobe atelectasis versus pneumonia. It sounds like atelectasis. Overall patient is doing much better. More alert, awake, no evidence of DT. The patient received maximum benefit of hospitalization. The patient is still weak. [facility]. Blood work done today. WBC count 8.73, hemoglobin 9.7, hematocrit 29.1, platelet count was 334. Electrolytes were fairly benign. PT/INR 0.92. Urinalysis 4+ bacteria, too numerous to count WBC. Urine leukocytes were large. Urine drug screen was negative. Alcohol level was 138. Patient had a CT scan of the head and cervical spine done. No evidence of acute intracranial disease. No evidence of acute bony disease in the cervical spine. Lengthy discussion with patient about smoking and alcohol cessation. Patient understood and agreed. Overall plan discussed with patient's family and they are in agreement. Discharge order as per separate sheet. We will do fall precautions, antibiotics, bronchodilator care, pain management. The patient will be followed up by Dr. Stewart. cc: Tobi Stewart MD
[2016-10-06] MEDS: ROCEPHIN 1 GM/NS 1 GM/50 ML IVPB IV SCH (02:40)
[2016-10-06] MEDS: PROTONIX IV SCH (02:40)
[2016-10-06] MEDS: DUONEB (A & A) INH SCH ×4 (03:59→19:14)
[2016-10-06] MEDS: CLINIMIX E 4.25%-5% SOLUTION 1,000 ML IV SCH (06:21)
[2016-10-06] MEDS: EFFEXOR PO SCH (09:13)
[2016-10-06] MEDS: BUSPAR PO SCH ×2 (09:13→20:43)
[2016-10-06] MEDS: M.V.I.-12 10 ML, FOLIC ACID 1 MG, MAGNESIUM SULFATE 1 GM, THIAMINE 100 MG in NS 1,000 ML IV SCH (09:13)
[2016-10-06] MEDS: NICODERM PATCH TD SCH (09:14)
[2016-10-06] MEDS: MUCOMYST 20% INH SCH ×2 (11:32→19:13)
--- NOTE | 2016-10-06 13:10 | PROGRESS NOTE ---
DATE: 10/06/2016 SUBJECTIVE: I was called. The complains some pains. The patient was given Tylenol. Apparently, he is supposed to go for rehab at [facility] yesterday. However the paperwork was not being done. As a result, he was staying in the hospital until Saturday. He is still on the IV PPI and IV fluids. OBJECTIVE: General: When I examined the patient, the patient was asleep. No symptoms reported. Vital Signs: On examination, afebrile. Vitals are stable. The patient is resting very well. Chest: Clear. Cardiovascular: Heart sounds are regular. Rest of the exam no change. LABORATORY DATA: Urine cultures reported Pseudomonas infection. Sensitive to Levaquin. ASSESSMENT AND PLAN: 1. Urinary tract infection on IV ceftriaxone. 2. Deconditioning. Waiting for placement. PLAN OF CARE: Discontinue IV fluids. Waiting for placement on Saturday. LEVEL OF DOCUMENTATION: Fifteen minutes. cc: MD Tobi Stahl MD
[2016-10-07] MEDS: ROCEPHIN 1 GM/NS 1 GM/50 ML IVPB IV SCH (00:25)
[2016-10-07] MEDS: PROTONIX IV SCH (00:25)
[2016-10-07] MEDS: SODIUM CHLORIDE 0.9% INJ SCH (00:25)
[2016-10-07] MEDS: TYLENOL PO PRN ×2 (00:28→05:19)
[2016-10-07] MEDS: CALMOSEPTINE OINTMENT TOP PRN ×3 (00:41→20:57)
[2016-10-07] MEDS: DUONEB (A & A) INH SCH ×2 (03:12→22:14)
[2016-10-07] MEDS: EFFEXOR PO SCH (09:40)
[2016-10-07] MEDS: NICODERM PATCH TD SCH (09:40)
[2016-10-07] MEDS: BUSPAR PO SCH ×2 (09:40→20:53)
--- NOTE | 2016-10-07 10:04 | PROGRESS NOTE ---
DATE: 10/07/2016 SUBJECTIVE: The patient is waiting for placement in rehabilitation and the patient is sleeping, not able to wake up. IV fluids and clinimix were discontinued. OBJECTIVE: On examination, his vital are stable and the patient is sleeping. Homer seen on the head. Chest is clear. Heart sounds are regular. Skin is bruising, ecchymotic , no obvious deficits. ASSESSMENT AND PLAN: 1. Deconditioning. 2. Dementia. 3. Urinary tract infection. 4. Stable and going for rehabilitation tomorrow. Paperwork was done by on Saturday afternoon. 5. Continue present medical therapy. 6. No family was there. LEVEL OF DOCUMENTATION: 15 minutes. cc: MD Tobi Stahl MD MTDD
[2016-10-07] MEDS: MUCOMYST 20% INH SCH (22:12)
[2016-10-08] MEDS: ROCEPHIN 1 GM/NS 1 GM/50 ML IVPB IV SCH (00:49)
[2016-10-08] MEDS: PROTONIX IV SCH (00:49)
[2016-10-08] MEDS: DUONEB (A & A) INH SCH ×2 (03:10→09:12)
--- NOTE | 2016-10-08 07:07 | EKG Report ---
Test Performed on : 10/06/2016 07:08:44 AM Test Reason : "Run of Afib RVR" per telemetry Blood Pressure : / mmHG Vent. Rate : 093 BPM Atrial Rate : 093 BPM P-R Int : 144 ms QRS Dur : 086 ms QT Int : 360 ms P-R-T Axes : 041 049 042 degrees QTc Int : 447 ms Sinus rhythm. with premature atrial complexes. Otherwise normal ECG When compared with ECG of 27-SEP-2016 02:24, premature atrial complexes. are now present Confirmed by Rafael UMANA, Enrique Barnes ([id number]) on 10/08/2016 7:13:48 AM
[2016-10-08] MEDS ORDERED: PNEUMOVAX 23 IM ONE (07:43)
--- NOTE | 2016-10-08 07:49 | DISCHARGE SUMMARY ---
ADMISSION DATE: 09/27/2016 DISCHARGE DATE: ADDENDUM: Mr. Morrow's discharge was delayed because of unavailability of group home bed over the weekend. The patient is doing better. He is extremely weak. Deconditioning needing physical therapy. No fever or chills. No nausea or vomiting. Oral intake is good. DISCHARGE EXAMINATION: Vital signs noted. Neck is supple. No JVD. Lungs: Bilateral good air entry present. CVS: S1 and S2 heard. Abdomen: Soft, globular. Bowel sounds present. HOTEL SERVICES SALES REPRESENTATIVE: Alert and awake able to move all 4 limbs. Laboratory Data done over on Saturday noted. Wound on the scalp looking better. I am going to discontinue his sweta. Clinically, patient is doing well. We will discharge patient to rehab. Consideration for UTI improved. His other problems include alcohol abuse, COPD, hypertension, deconditioning, and history of prostate cancer. Overall discharge condition satisfactory. cc: Tobi Stewart MD
[2016-10-08] MEDS: NICODERM PATCH TD SCH (09:02)
[2016-10-08] MEDS: EFFEXOR PO SCH (09:02)
[2016-10-08] MEDS: BUSPAR PO SCH (09:02)
[2016-10-08] MEDS: MUCOMYST 20% INH SCH (09:12)
[2016-10-08 12:49] VITALS: BP 182/71
== END 2016-10-08 15:36 ==
LOC: ED 22:30 → 3S 09-27 03:05 → SUATTDRO 09-27 03:05
PROVIDERS: ADMIT Internal Medicine; ATTEND Internal Medicine

== ENCOUNTER 2017-02-12 06:55 | Inpatient (IN) ==
[2017-02-12] MEDS ORDERED: KEFZOL 1 GM/D5W 1 GM/50 ML IVPB ONE (07:36)
[2017-02-12] MEDS ORDERED: LR 1,000 ML ONE (07:36)
[2017-02-12] MEDS ORDERED: DIPRIVAN 1% ONE (07:45)
[2017-02-12] MEDS ORDERED: XYLOCAINE-MPF 2% ONE (07:45)
[2017-02-12] MEDS ORDERED: FENTANYL ONE (07:45)
[2017-02-12 07:51] LABS: MANUAL DIFF NEEDED? NO
--- NOTE | 2017-02-12 08:00 | Diag Imaging Result Doc PS360 ---
EXAM: CHEST-2 VIEWS HISTORY: PREOP TECHNIQUE: Two views COMPARISON: 01/23/2017 FINDINGS: The lungs are hyperexpanded. Pulmonary vessels are small. The heart is not enlarged. There are no infiltrates. There are granuloma in the upper lungs. Mild scoliosis. No pleural effusions. IMPRESSION: Emphysema Electronically signed by Ivan Fragoso 02/12/2017 7:58 AM
[2017-02-12 08:01] LABS: BASO% 0.7 % (0.0-0.8); EOS# 0.28 X1000 (0.0-0.7); EOS% 3.7 % (0.0-10.0); HEMATOCRIT 40.6 % (42.0-52.0); HEMOGLOBIN 13.9 g/dL (14.0-18.0); IMM GRAN# 0.02 X1000 (0.0-0.04); IMM GRAN% 0.3 % (0.0-0.5); LYMPH# 2.15 X1000 (1.2-3.4); LYMPH% 28.4 % (20.5-51.1); MCH 35.3 PG (27-31); MCHC 34.2 g/dL (33-37); MONO# 0.84 X1000 (0.11-0.59); MONO% 11.1 % (1.7-9.3); MPV 10.6 FL (7.4-10.4); NEUT% 55.8 % (42.2-75.2); PLT 226 X1000 (130-400); RBC 3.94 XMIL (4.7-6.1)
[2017-02-12 08:07] LABS: INR 0.93; PROTIME 9.7 Seconds (9.2-11.7); PTT 25.8 Seconds (22.0-36.0)
[2017-02-12 08:13] LABS: AGAP 14; ALBUMIN 3.4 g/dL (3.5-5.0); ALKALINE PHOSPHATASE 90 U/L (32-122); BUN 24 mg/dL (8-22); CHLORIDE 101 mmol/L (98-107); COSMO 287; GOT 24 U/L (10-34); GPT 11 U/L (10-44); POTASSIUM 3.8 mmol/L (3.5-5.1); SODIUM 142 mmol/L (136-145); TCO2 27 mmol/L (25-35); TOTAL BILIRUBIN 0.43 mg/dL (0.20-1.00); TOTAL PROTEIN 6.4 g/dL (6.3-8.3)
[2017-02-12] MEDS ORDERED: COREG ONE (08:28)
[2017-02-12] MEDS ORDERED: MURI-LUBE MINERAL OIL ONE ×2 (08:36)
[2017-02-12] MEDS ORDERED: MARCAINE 0.25% PF ONE (08:36)
--- NOTE | 2017-02-12 08:56 | EKG Report ---
Test Performed on : 02/12/2017 07:27:35 AM Test Reason : PREOP Blood Pressure : / mmHG Vent. Rate : 083 BPM Atrial Rate : 083 BPM P-R Int : 150 ms QRS Dur : 094 ms QT Int : 386 ms P-R-T Axes : 079 070 051 degrees QTc Int : 453 ms Sinus rhythm. with occasional premature ventricular complexes. Nonspecific ST abnormality Abnormal ECG When compared with ECG of 06-OCT-2016 07:08, premature ventricular complexes. are now present premature atrial complexes. are no longer present Confirmed by Maciel UMANA, Mathew Suarez ([id number]) on 02/13/2017 7:50:32 AM
[2017-02-12] MEDS ORDERED: ZOFRAN IV PRN (10:20)
[2017-02-12] MEDS ORDERED: D5 1/2 NS 1,000 ML ONE (10:35)
[2017-02-12] MEDS: D5 1/2 NS 1,000 ML IV SCH (11:24)
[2017-02-12] MEDS: THIAMINE IM SCH (11:33)
[2017-02-12] MEDS ORDERED: FLUZONE QUAD 2017-2018 SYRINGE IM ONE (11:53)
[2017-02-12] MEDS ORDERED: CYKLOKAPRON 1,000 MG in NS 100 ML IV ONE (14:00)
[2017-02-12] MEDS: NORCO-10 PO PRN (14:51)
[2017-02-12] MEDS ORDERED: PNEUMOVAX 23 IM ONE (18:45)
[2017-02-12] MEDS: BUSPAR PO SCH (20:48)
[2017-02-12] MEDS: DESYREL PO SCH (20:48)
[2017-02-12] MEDS: PERIDEX MT SCH (20:49)
[2017-02-13] MEDS: D5 1/2 NS 1,000 ML IV SCH (06:41)
[2017-02-13] MEDS: BREO ELLIPTA 100/25 MCG INH INH SCH (08:40)
[2017-02-13] MEDS: PERIDEX MT SCH ×2 (09:29→20:19)
[2017-02-13] MEDS: EFFEXOR PO SCH (09:29)
[2017-02-13] MEDS: COREG PO SCH (09:30)
[2017-02-13] MEDS: THIAMINE IM SCH (09:30)
[2017-02-13] MEDS: BUSPAR PO SCH ×2 (09:30→20:19)
[2017-02-13] MEDS: PRINIVIL PO SCH (09:30)
[2017-02-13] MEDS: FLOMAX PO SCH (09:30)
[2017-02-13] MEDS: ATIVAN PO SCH ×2 (17:07→20:19)
[2017-02-13] MEDS: NORCO-10 PO PRN (17:20)
[2017-02-13] MEDS: DESYREL PO SCH (20:19)
[2017-02-14] MEDS: D5 1/2 NS 1,000 ML IV SCH ×3 (01:12→23:32)
[2017-02-14] MEDS: NORCO-10 PO PRN (01:12)
[2017-02-14] MEDS: BREO ELLIPTA 100/25 MCG INH INH SCH (08:10)
[2017-02-14] MEDS: PERIDEX MT SCH ×3 (09:22→23:32)
[2017-02-14] MEDS: BUSPAR PO SCH ×3 (09:23→23:33)
[2017-02-14] MEDS: EFFEXOR PO SCH (09:23)
[2017-02-14] MEDS: ATIVAN PO SCH ×3 (09:23→23:32)
[2017-02-14] MEDS: PRINIVIL PO SCH (09:23)
[2017-02-14] MEDS: COREG PO SCH (09:23)
[2017-02-14] MEDS: FLOMAX PO SCH (09:24)
[2017-02-14] MEDS: THIAMINE IM SCH (09:24)
[2017-02-14] MEDS: DESYREL PO SCH (22:57)
[2017-02-15] MEDS: NORCO-10 PO PRN ×2 (03:34→14:59)
[2017-02-15] MEDS: BREO ELLIPTA 100/25 MCG INH INH SCH (08:07)
[2017-02-15] MEDS: EFFEXOR PO SCH (09:36)
[2017-02-15] MEDS: PRINIVIL PO SCH (09:36)
[2017-02-15] MEDS: FLOMAX PO SCH (09:36)
[2017-02-15] MEDS: BUSPAR PO SCH ×2 (09:37→21:39)
[2017-02-15] MEDS: PERIDEX MT SCH ×2 (09:37→21:39)
[2017-02-15] MEDS: COREG PO SCH (09:37)
[2017-02-15] MEDS: ATIVAN PO SCH ×2 (09:41→21:39)
[2017-02-15] MEDS: D5 1/2 NS 1,000 ML IV SCH (21:38)
[2017-02-15] MEDS: DESYREL PO SCH (21:39)
[2017-02-16] MEDS: BREO ELLIPTA 100/25 MCG INH INH SCH (08:08)
[2017-02-16] MEDS: FLOMAX PO SCH (09:59)
[2017-02-16] MEDS: EFFEXOR PO SCH (09:59)
[2017-02-16] MEDS: BUSPAR PO SCH (09:59)
[2017-02-16] MEDS: ATIVAN PO SCH (09:59)
[2017-02-16] MEDS: PRINIVIL PO SCH (09:59)
[2017-02-16] MEDS: PERIDEX MT SCH (10:00)
[2017-02-16] MEDS: COREG PO SCH (10:00)
[2017-02-16] MEDS: NORCO-10 PO PRN (10:25)
[2017-02-16 11:59] VITALS: BP 177/76
[2017-02-16] MEDS ORDERED: PNEUMOVAX 23 IM ONE (12:00)
== END 2017-02-16 12:40 | disposition home health service (06) ==
LOC: OR 06:55 → 4N 10:07
PROVIDERS: ADMIT Surgery; ATTEND Surgery